=== PATIENT | male | born 1935 | race Caucasian/White ===

== ENCOUNTER → 2021-11-28 09:10 | Outpatient (BNVA) | payer MEDICARE, OTHER, SELFPAY | PROVIDERS: PCP Registered Nurse; Referring Provider Registered Nurse; Visit Provider Specialist | DX: G56.01 Carpal tunnel syndrome, right upper limb (principal) | CPT/HCPCS: 95908; 95909 ==

== ENCOUNTER → 2022-01-07 10:09 | Outpatient (BNVA) | payer MEDICARE, OTHER, SELFPAY | PROVIDERS: PCP Registered Nurse; Referring Provider Registered Nurse; Visit Provider Specialist | DX: G56.01 Carpal tunnel syndrome, right upper limb (principal) | CPT/HCPCS: 73110 ==

== ENCOUNTER 2022-01-07 13:53 | Outpatient (CLI) | payer MEDICARE, OTHER, SELFPAY | END 2022-01-07 13:54 | disposition home or self-care (01) | LOC: SPT 13:54 | PROVIDERS: PCP Registered Nurse; Visit Provider Specialist | DX: Z46.89 Encounter for fitting and adjustment of other specified devices (principal); G56.01 Carpal tunnel syndrome, right upper limb | CPT/HCPCS: 97760; 99204; L3908 ==

== ENCOUNTER 2022-03-16 13:55 | Emergency (ER) | payer MEDICARE, OTHER, SELFPAY ==
[2022-03-16 14:08] VITALS: BP 174/82; PULSE 72; RESP 18; TEMP 37.6; O2SAT 94; BMI 26.6
--- NOTE | 2022-03-16 14:24 | XRR_ITS ---
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 Views: 2 or 3 views. COMPARISON: No relevant prior studies available. FINDINGS: Bones/joints: Lumbar spine dextroscoliosis with a Rudd angle of 14 degrees as measured between the superior endplate of L1 and inferior endplate of L5. Multilevel severe disc space narrowing with productive degenerative endplate changes. Grade 1 anterolisthesis of L4 relative to L5 of 8 mm. Soft tissues: Unremarkable. Vasculature: Scattered vascular calcifications. XR/XR lumbar spine 2-3V* [id number] IMPRESSION: 1. Lumbar spine dextroscoliosis with a Rudd angle of 14 degrees as measured between the superior endplate of L1 and inferior endplate of L5. 2. Multilevel severe disc space narrowing with productive degenerative endplate changes. 3. Grade 1 anterolisthesis of L4 relative to L5 of 8 mm. 4. Scattered vascular calcifications.
[2022-03-16 14:27] VITALS: PULSE 74; RESP 20; O2SAT 98
--- NOTE | 2022-03-16 14:27 | ED_ITS ---
HPI - Back Pain/Injury General: Chief Complaint: Back Pain/Injury Stated Complaint: back pain Time Seen by Provider: 03/16/22 14:17 History of Present Illness: Patient is an 86-year-old male comes to the ED with lower back pain. Pain started approximately 3 days ago. 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 The next day he started having the back pain. He went and saw his chiropractor and they performed a manipulation on him and it did not help his symptoms. He also saw his PCP yesterday and they performed a injection of steroid that did not help either. He rates his pain currently a 10 out of 10 and its all located in his lower back. Pain worsens with some movements. Denies any pain radiating down his legs. Denies any bladder or bowel incontinence, pelvic anesthesia or weakness to lower extremities. Associated symptoms: Deny abdominal pain, chills, dysuria, fatigue, fever(s), hematuria, nausea or vomiting Review of Systems Const: Denies: fever(s), chills or fatigue Eyes: Denies: change in vision or eye discomfort ENMT: Denies: throat pain, odynophagia, nasal discharge or nasal congestion Card: Denies: chest pain, palpitations, edema, swelling of feet/ankles, dy spnea on exertion or orthopnea Resp: Denies: dyspnea, productive cough or non-productive cough GI: Denies: abdominal pain, nausea, vomiting, diarrhea, constipation or hematochezia : Denies: flank pain, difficulty urinating, dysuria or hematuria Musc: Reports: back pain; Denies: neck pain or extremity swelling Skin/Breast: Denies: rash or new lesions Neuro: Denies: headache(s), numbness in extremities or weakness in extremities PFS ED PFSH: Medical History No pertinent family history Surgical History No pertinent past surgical history Social History Smoking and tobacco status: never smoked Alcohol intake: never History of recent travel: No Physical Exam Const: COMMON NORMALS: patient oriented x3 and alert GENERAL APPEARANCE: cooperative and comfortable HENMT: COMMON NORMALS: normocephalic HEAD & SCALP: normocephalic MOUTH: Normal oral and palatal mucosa present THROAT: posterior oropharynx normal and uvula midline Neck/C-Spine: COMMON NORMALS: supple GENERAL: Yes normal visual inspection Resp: COMMON NORMALS: normal respiratory effort, No retractions, No use of accessory muscles and clear to auscultation bilaterally AUSCULTATION: clear t o auscultation bilaterally Cardio: COMMON NORMALS: regular rate, regular rhythm, S1 normal heart sound present, S2 normal heart sound present, No gallops present (Cardio), No clicks present (Cardio), No murmurs present (Cardio) and Peripheral pulses 2+ throughout RATE: regular rate RHYTHM: regular rhythm HEART SOUNDS: S1 normal heart sound present and S2 normal heart sound present PERIPHERAL PULSES: Peripheral pulses 2+ throughout GI: COMMON NORMALS: Normal to inspection, nondistended, normoactive bowel sounds present, Soft to palpation, non-tender and no masses PALPATION: Yes Soft to palpation : COMMON NORMALS: Yes no CVA tenderness BLADDER/KIDNEY EXAM: Yes no CVA tenderness Back/Pelvis: COMMON NORMALS: no CVA tenderness LUMBAR SPINE/LOWER BACK: Yes lumbar spinal tenderness Lumbar spinal tenderness location: L3, L4 and L5 and Yes paraspinal muscle tenderness Lumbar paraspinal muscle tenderness: bilateral Extremity: COMMON NORMALS: normal to inspection Neuro: COMMON NORMALS: patient oriented x3 SENSORIUM/ORIENTATION: Yes alert GAIT: Yes Normal gait present Skin: GENERAL SKIN EXAM: dry skin Course Vital Signs: Vital signs: Vital Signs Temperature 99.7 F H 03/16/22 14:08 Pulse Rate 83 03/16/22 15:44 Respiratory Rate 18 03/16/22 15:44 Blood Pressure 174/82 03/16/22 14:08 Pulse Oximetry 97 03/16/22 15:44 Oxygen Delivery Me thod 03/16/22 14:27 MDM - Back Pain/Injury Medical Decision Making Patient is an 86-year-old male comes to the ED with lower back pain. Pain started approximately 3 days ago. 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 The next day he started having the back pain. He went and saw his chiropractor and they performed a manipulation on him and it did not help his symptoms. He also saw his PCP yesterday and they performed a injection of steroid that did not help either. He rates his pain currently a 10 out of 10 and its all located in his lower back. Pain worsens with some movements. Denies any pain radiating down his legs. Denies any bladder or bowel i ncontinence, pelvic anesthesia or weakness to lower extremities. Vitals are stable. Exam of patient shows some L3-L5 lumbar spinal tenderness and lumbar paraspinal muscle tenderness bilaterally. Rest of exam is benign. Lumbar spine x-ray shows no acute fractures but shows some multilevel disc degenerative disc disease. Given patient's history and exam I have diagnosed him with a strain of lumbar region. He was given a dose of morphine and Norflex here in the ED and it did improve his symptoms. He was stable for discharge home and sent with a prescription for muscle relaxer and an NSAID. Told to follow-up with PCP in the next week for reevaluation. Return to ED precautions given. Patient understood and agreed with plan. Labs Radiology Impressions Lumbar Spine X-Ray 03/16/22 14:24 IMPRESSION: 1. Lumbar spine dextroscoliosis with a Rudd angle of 14 degrees as measured between the superior endplate of L1 and inferior endplate of L5. 2. Multilevel severe disc space narrowing with productive degenerative endplate changes. 3. Grade 1 anterolisthesis of L4 relative to L5 of 8 mm. 4. Scattered vascular calcifications. Discharge Plan Discharge Patient Disposition: Home Clinical Impression: Strain of lumbar region Condition: Stable Prescriptions: New methocarbamol 750 mg tablet 750 mg PO Q8H PRN (Reason: Back muscle spasms and pain) Qty: 20 0RF No Action celecoxib [Celebrex] 50 mg capsule 50 mg PO BID (DME) COCK UP SPLINT See Rx Instructions .Route .MEDSUPPLY Qty: 1 0RF Rx Instructions: As directed Discharge Orders: Discharge ED (Routine); Ordered 03/16/22 Ordered By: Jesse Edmond Referrals: Deirdre Hilliard [Primary Care Provider] - Discharge Diet: Regular Discharge Activity: Increase activity as tolerated Patient Instructions: Low Back Strain (ED) Activity Restrictions/Additional Instructions: Follow-up with medical provider as directed in the next 5 to 7 days for reevaluation. Take medications as prescribed. Return to the ER or your medical provider if condition worsens. Please read and understand discharge instructions. Thank you for choosing [facility] for your healthcare needs today. Please realize this is an emergency room and that we are providing you with a m edical screening exam and this may not be complete and all inclusive of all the testing and or work up that you may need to determine your ailment or severity of your illness. It is very important that you follow up as instructed or that you return to the Emergency Department should you have concerns or if your condition changes or worsens in any way. Coding Level of Care Code ED Supervisor Microwave for Kiera Fwd Exam Comprehensive
[2022-03-16] MEDS: morphine 4 mg/mL SDV 1 mL IVP (14:45)
[2022-03-16] MEDS: orphenadrine 30 mg/mL Inj 2 mL 60 MG IM (14:45)
[2022-03-16 15:44] VITALS: PULSE 83; RESP 18; O2SAT 97
== END 2022-03-16 15:30 | disposition home or self-care (01) ==
PROVIDERS: Emergency Provider Physician Assistant; PCP Registered Nurse
DX: S39.012A Strain of muscle, fascia and tendon of lower back, initial encounter (principal); X50.9XXA Other and unspecified overexertion or strenuous movements or postures, initial encounter
CPT/HCPCS: 72100; 96372; 96374; 99284; J2270; J2360

== ENCOUNTER → 2022-03-26 13:00 | Outpatient (BNVA) | payer MEDICARE, OTHER, SELFPAY | PROVIDERS: PCP Registered Nurse; Referring Provider Nurse Practitioner Family; Visit Provider Physician Assistant | DX: M51.36 Other intervertebral disc degeneration, lumbar region (principal); M47.816 Spondylosis without myelopathy or radiculopathy, lumbar region; M47.896 Other spondylosis, lumbar region | CPT/HCPCS: 72110; 99203 ==

== ENCOUNTER → 2022-04-04 10:01 | Outpatient (BNVA) | payer MEDICARE, OTHER, SELFPAY | PROVIDERS: PCP Registered Nurse; Visit Provider Physician Assistant | DX: M47.816 Spondylosis without myelopathy or radiculopathy, lumbar region (principal); M51.36 Other intervertebral disc degeneration, lumbar region | CPT/HCPCS: 99213 ==

== ENCOUNTER 2022-04-30 14:00 | Outpatient (CLI) | payer MEDICARE, OTHER, SELFPAY ==
--- NOTE | 2022-04-30 14:30 | MR_ITS ---
WS: [id number] MRI LUMBAR SPINE NONCONTRAST TECHNIQUE: Sagittal T1, T2 and STIR imaging. Axial T1 and T2 imaging. CLINICAL INFORMATION: pain COMPARISON: None. FINDINGS: Counting performed from the craniocervical junction. Grade 1 anterolisthesis L5 on S1. S1 i s partially lumbarized with residual disc space. Lumbar curve. No acute compression. Moderate spondylitic changes lumbar spine. Degenerative narrowing at the L1-L2 interspace with endplate edema likely degenerative. Discitis is n ot entirely excluded. However, no evidence of paravertebral abscess or significant soft tissue edema. L1-L2: Disc osteophyte complex endplate ridging. Moderate central canal stenosis. Impingement on the traversing L2 nerve roots bilaterally subarticular recess. Moderate RIGHT and mild LEFT foraminal rena rowing. Mild facet arthropathy. Impingement worse in the LEFT subarticular recess. L2-L3: Disc osteophytic complex with endplate ridging. Moderate central canal stenosis. Impingement o n the LEFT greater than RIGHT subarticular recess. Moderate facet arthropathy. Moderate LEFT and mild RIGHT foraminal narrowing. Moderate facet arthropathy. L3-L4: Mild disc bulging with impingement on traversing LEFT L4 nerve root in the subarticular recess . Mild LEFT greater than RIGHT foraminal narrowing. Moderate facet arthropathy. Mild central canal st enosis. L4-L5: Mild disc osteophyte complex endplate ridging. Moderate central canal stenosis. Impingement tr aversing L5 nerve roots bilaterally. Moderate to advanced facet arthropathy. Moderate LEFT and mild R IGHT foraminal narrowing. L5-S1: Disc bulging with grade 1 anterolisthesis. Severe central canal stenosis. Impingement traversi ng S1 nerve roots bilaterally. Advanced facet arthropathy with small facet effusions. Moderate RIGHT and mild LEFT foraminal narrowing. S1-S2: Minimal disc bulging. Moderate facet arthropathy. Spinal canal and foramen are patent. Slight impingement on the traversing S2 nerve roots. Grade 1 anterolisthesis in the cervical spine at C6-C7 and C7-T1 seen on the social science analyst imaging. 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 MR/MR lumbar spine wo con* [id number] IMPRESSION: 1. Counting performed from the craniocervical junction. Grade 1 anterolisthesi s L5 on S1. S1 is partially lumbarized with residual disc space. 2. Advanced degenerative narrowing at the L1-L2 disc space with endplate edema . Discitis is not entirely excluded. No evidence of paravertebral abscess. Anthony mmend correlation for infection. 3. Moderate central canal stenosis L1-L2, L2-L3, and L4-L5 with impingement on the subarticular recess at these levels. 4. Severe central canal stenosis L5-S1. 5. Mild central canal stenosis L3-L4 with impingement on the LEFT subarticular recess and traversing LEFT L4 nerve root. 6. Advanced facet arthropathy L5-S1 with small facet effusions compatible with synovitis likely degenerative in a patient this age. 7. Foraminal narrowing worse at RIGHT L1-L2, LEFT L2-L3, LEFT L3-L4, LEFT L4-L 5 and bilateral L5-S1.
== END 2022-04-30 14:01 | disposition home or self-care (01) ==
LOC: RAD 14:00
PROVIDERS: PCP Registered Nurse; Visit Provider Physician Assistant
DX: M47.816 Spondylosis without myelopathy or radiculopathy, lumbar region (principal); M51.36 Other intervertebral disc degeneration, lumbar region; M48.061 Spinal stenosis, lumbar region without neurogenic claudication
CPT/HCPCS: 72148

== ENCOUNTER → 2022-05-02 09:21 | Outpatient (BNVA) | payer MEDICARE, OTHER, SELFPAY | PROVIDERS: PCP Registered Nurse; Visit Provider Physician Assistant | DX: M47.816 Spondylosis without myelopathy or radiculopathy, lumbar region (principal); M51.36 Other intervertebral disc degeneration, lumbar region; M48.061 Spinal stenosis, lumbar region without neurogenic claudication | CPT/HCPCS: 99213 ==

== ENCOUNTER 2022-06-13 07:25 | Outpatient (CLI) | payer OTHER, SELFPAY ==
--- NOTE | 2022-06-13 07:33 | USCV_ITS ---
Rose Faustin Age: 86 Gender: M : 1935 Exam Date: 06/13/2022 08:02 Ordering Phys: Fabiana Benedict MD Technologist: Tawanda Torres Exam Location: [facility] [place] Indication: murmur BP: 174 / 82 HR: 52 Rhythm: Sinus Technical Quality: Adequate MEASUREMENTS (Male / Female) Normal Values 2D ECHO LVOT Diameter 2.0 cm LV Ejection Fraction MOD 2C 67.6 % LV Ejection Fraction 2C AL 67.8 % LA Diameter 3.3 cm LA Width 2.9 cm LA Height 3.6 cm RA Width 3.4 cm RA Height 4.3 cm Aorta at Sinotubular Diameter 2.3 cm M-MODE Aortic Annulus Diameter 3.1 cm LA Ao Ratio MM 1.0 MV E Point Septal Separation 0.4 cm DOPPLER AV Peak Velocity 301.7 cm/s LVOT Peak Velocity 126.0 cm/s AV Area Cont Eq vti 1.3 cm squared AV Area Cont Eq pk 1.3 cm squared MV Peak Velocity 135.0 cm/s MV Area PHT 4.4 cm squared Mitral E to A Ratio 0.8 MV E' Velocity 55.0 cm/s Mitral E to MV E' Ratio 13.8 Mitral E to LV E' Lateral Ratio 13.4 Mitral E to LV E' Septal Ratio 14.2 TR Peak Velocity 339.6 cm/s TR Peak Gradient 46.1 mmHg TR Mean Velocity 263.8 cm/s TR Mean Gradient 30.0 mmHg TR Velocity Time Integral 97.7 cm Right Atrial Pressure 8.0 mmHg Pulmonary Artery Systolic Pressu 54.1 mmHg PV Peak Velocity 106.7 cm/s RV Acceleration Time 0.1 s RV Ejection Time 0.3 s RV AcT/ET 0.5 FINDINGS Left Ventricle Left ventricle is normal in size. LV systolic function is normal with EF 55 to 60%. No regional wall motion normalities are seen. Grade 1 diastolic dysfunction Right Ventricle Normal in size and function Right Atrium Normal in size Left Atrium Normal in size Mitral Valve Moderate mitral annular calcification. Mild mitral regurgitation. Aortic Valve Aortic valve is thickened. Moderate aortic stenosis with aortic valve area of 1.26 cm squared and mean gradient across aortic valve of 22.4 mmHg. Mild to moderate aortic regurgitation. Tricuspid Valve Mild tricuspid regurgitation. RVSP is 50 to 55 mmHg. Moderate pulmonary hypertension. Pulmonic Valve Not well-visualized. Mild pulmonic regurgitation. Pericardium Normal Aorta Normal size. IVC Normal in size CONCLUSIONS LV systolic function is normal with EF of 55 to 60% Grade 1 diastolic dysfunction Mild mitral regurgitation Moderate aortic stenosis. Mild to moderate aortic regurgitation Mild tricuspid regurgitation Moderate pulmonary hypertension Mild pulmonic regurgitation No comparison studies are available Chilango Armstrong MD (Electronically Signed) Final Date: 27 Jun 2022 13:45 S
== END 2022-06-13 07:26 | disposition home or self-care (01) ==
LOC: RAD 07:29
PROVIDERS: PCP Family Medicine; Visit Provider Family Medicine
DX: R01.1 Cardiac murmur, unspecified (principal); I50.30 Unspecified diastolic (congestive) heart failure; I34.0 Nonrheumatic mitral (valve) insufficiency; I35.0 Nonrheumatic aortic (valve) stenosis; I35.1 Nonrheumatic aortic (valve) insufficiency; I07.1 Rheumatic tricuspid insufficiency; I27.20 Pulmonary hypertension, unspecified; I37.1 Nonrheumatic pulmonary valve insufficiency
CPT/HCPCS: 93306

== ENCOUNTER → 2022-09-16 08:31 | Outpatient (BNVA) | payer MEDICARE, OTHER, SELFPAY | PROVIDERS: PCP Family Medicine; Visit Provider Specialist | DX: G56.01 Carpal tunnel syndrome, right upper limb (principal) | CPT/HCPCS: 99204 ==

== ENCOUNTER → 2022-10-02 11:06 | Outpatient (BNVA) | payer MEDICARE, OTHER, SELFPAY | PROVIDERS: PCP Family Medicine; Visit Provider Family Medicine | DX: Z01.818 Encounter for other preprocedural examination (principal) | CPT/HCPCS: 17000; 69100; 80048; 85025; 99204 ==

== ENCOUNTER 2022-10-11 06:15 | Day surgery (SDC) | payer MEDICARE, OTHER, SELFPAY ==
[2022-10-10 13:17] VITALS: BMI 23.5
[2022-10-11] VITALS (11 sets, daily range): BP systolic 134–154; BP diastolic 76–90; PULSE 55–87; RESP 11–25; TEMP 36.1–36.4; O2SAT 95–100
[2022-10-11] MEDS: sodium chloride 0.9% 1,000 ML 30 ML IV (06:47)
--- NOTE | 2022-10-11 06:49 | W.PM.OPSUD ---
Surgery/Procedure H&P Update DATE OF PROCEDURE: October 11, 2022 DATE H&P PERFORMED: 10/02/22 H&P UPDATE INFORMATION: I have reviewed H&P completed within last 30 days, I have examined patient prior to procedure, No changes to prior documentation and H&P is in [facility] [place] on date indicated PLANNED PROCEDURE: Operation Date: 10/11/22 08:10 Proposed Procedures p RIGHT CARPAL TUNNEL RELEASE [id number],G56.00(Right) - Carla Riggs MD Related Problem List Diagnoses (1) Right carpal tunnel syndrome:
[2022-10-11] MEDS: gabapentin 300 mg Capsule PO (06:50)
[2022-10-11] MEDS: CELEcoxib 200 mg Capsule 400 MG PO (06:50)
[2022-10-11] MEDS: acetaminophen 1,000 MG/100 ML PIGGYBACK 400 MG IV (06:52)
--- NOTE | 2022-10-11 07:39 | ANES.PREANE2 ---
Pre-Anesthetic Assessment Height/Weight: Height 1.7 m Weight 68.039 kg Temp Pulse Resp BP Pulse Ox O2 Del Method 97.3 F L 55 L 16 144/80 97 Room Air 10/11/22 06:35 10/11/22 06:35 10/11/22 06:35 10/11/22 06:35 10/11/22 06:35 10/11/22 06:44 Operation Date: 10/11/22 08:10 Proposed Procedures p RIGHT CARPAL TUNNEL RELEASE [id number],G56.00(Right) - Carla Riggs MD Familial anesthetic complications: None Was Beta Nicolasa taken within 24 hours: N/A Was Clonidine taken within 24 hours: N/A Last intake: Intake Last Liquid Date 10/10/22 Last Liquid Time 22:00 Last Solid Date 10/10/22 Last Solid Time 20:00 Social No alcohol and No tobacco Exam alert, oriented x 3, clear to auscultation bilaterally and regular rate & rhythm Airway Mallampati: Class II Dentition: false Pulmonary Sleep Apnea CV/HEM Hypertension GI Gastroesophageal Reflux Disease Anesthetic Plan ASA status: 3 Anesthesia: General Risk of > 500 ml blood loss (7ml/kg in children): No Medications/Allergies Home Medications Medication Instructions Recorded Confirmed Last Taken Type acetaminophen 500 mg capsule 500 mg PO Q6H PRN Mild Pain (Scale 10/02/22 10/10/22 10/10/22 History Score 1-4) lisinopril 20 mg tablet 20 mg PO DAILY 10/02/22 10/10/22 10/10/22 History omeprazole 20 mg capsule,delayed 20 mg PO DAILY 10/02/22 10/10/22 10/10/22 History release Allergies Allergy/AdvReac Type Severity Reaction Status Date / Time No Known Allergies Allergy Verified 10/10/22 13:14 Current Medications Generic Name Dose Route Start Last Admin Trade Name Freq PRN Reason Stop Dose Admin Sodium Chloride 1,000 mls @ 30 mls/hr 10/11/22 06:30 10/11/22 06:47 Sodium Chloride 0.9% IV 10/12/22 06:29 30 mls/hr .Q24H JAZMINE Administration PFSH Anesthesia Medical History No pertinent family history Surgical History No pertinent past surgical history Social History Smoking and tobacco status: never smoked Alcohol intake: never Substance/Drug Use: never Data Anesthesia Cardiac Studies: Echocardiogram 06/13/22
[2022-10-11] MEDS: ceFAZolin 2,000 MG in sodium chloride 0.9% (plus) 50 ML 100 MG IV (08:54)
[2022-10-11] MEDS: BUPivacaine 0.5% INJ 30 mL XX (09:46)
--- NOTE | 2022-10-11 10:20 | P.OP_ITS ---
Operative Report Date of procedure: October 11, 2022 Pre-op diagnosis: Right carpal tunnel syndrome Post-op diagnosis: Right carpal tunnel syndrome Post-op findings: Significant hardening of the transverse carpal ligament with calcification. Compression across the median nerve. Procedure done: Right carpal tunnel release Specimens removed/disposition: None Surgeon: Carla Riggs MD Bottle Blower: None Anesthesia: General (Per LMA, ASA 3) Estimated blood loss (mL): 2 Tourniquet time (min): 32 (At 250 mmHg) IV fluids (mL): 600 Urine output (mL): 0 (No Mares) Complications: None Findings: Calcification and thickening of the transverse carpal ligament. Condition: stable Disposition: PACU (Then return to same-day surgery for discharge to home) Brief History: This 86-year-old gentleman presented to the office with complaints of right carpal tunnel syndrome. He complained of pain at a 5 of 10 and had difficulties with activities of daily living. 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 He reports numbness and tingling sensations in all 5 digits. He states he wears a splint at night with some relief. When he was seen in the office, risks and complications were discussed. Consents were signed. Questions were answered. Procedure: The patient was brought to the operating theater. General anesthesia was administered per LMA, ASA 2. The arm was then prepped and draped with DuraPrep in usual fashion with the arm draped free. Tourniquet was elevated after exsanguination to 250 mmHg. Total tourniquet time was 32 minutes. A surgical pause was performed. At the time, the surgical pause, we confirmed the site and side of surgery. We also confirmed the patient's identity, appropriate and timely administration of preoperative antibiotics, Ancef 2 g, and preoperative surgical markings. An incision was then made along the thenar crease. The incision crossed the wrist joint in a curvilinear fashion. Dissection continued through skin and soft tissues using a scalpel. The palmaris longus was identified along with the transverse carpal ligament. Each of these was released carefully to avoid injury to the median nerve. The transverse carpal ligament was noted to be somewhat calcified and very hard and dense. We were able to dissect gently into the carpal canal which was noted to be quite tight with significant compression across the median nerve. The nerve was visualized and was an hourglass shape. The canal was subsequently palpated to assure there was no bony encroachment upon the canal. There was a quite thickened fibrous tissue within the canal, and this was opened longitudinally as well. The canal was then palpated distally and proximally to assure that my small finger was passed easily without impingement. Finding this to be so, attention was directed to closure. The wound was irrigated with ropivacaine plain. It was then closed with 3-0 nylon in an interrupted mattress fashion. Sterile dressing was then placed consisting of Dermabond, OpSite, fluffed fluffs, sterile soft roll, and an Mayur wrap. The tourniquet was released after 32 minutes. There were no complications. There were no specimens. The procedure was well tolerated. Plan is the patient will be discharged home. Related Problem List Diagnoses (1) Right carpal tunnel syndrome:
--- NOTE | 2022-10-11 11:20 | ANE.PACU2 ---
Inpatient post-anesthesia follow up: Airway intact: Yes Vital signs: Temperature 97.6 F Pulse Rate 76 Respiratory Rate 17 Blood Pressure 150/86 Pulse Oximetry 95 Oxygen Delivery Me thod Room Air Oxygen Flow Rate 5 Fraction of Inspir ed Oxygen Hydration adequate: Yes Nausea and vomiting: No Pain level: 1 Mental status: Baseline
== END 2022-10-11 11:20 | disposition home or self-care (01) ==
PROVIDERS: PCP Family Medicine; Visit Provider Specialist
PROC: (CPT 64721; principal; 2022-10-11 08:00)
DX: G56.01 Carpal tunnel syndrome, right upper limb (principal); G47.30 Sleep apnea, unspecified; K21.9 Gastro-esophageal reflux disease without esophagitis
CPT/HCPCS: 64721; J0131; J0690; J1100; J2405; J2704; J3010; J3490; J7030

== ENCOUNTER → 2022-10-22 08:43 | Outpatient (BNVA) | payer OTHER, MEDICARE, SELFPAY | PROVIDERS: PCP Family Medicine; Visit Provider Dermatology | DX: C44.229 Squamous cell carcinoma of skin of left ear and external auricular canal (principal); C44.92 Squamous cell carcinoma of skin, unspecified | CPT/HCPCS: 14061; 17311; 17312 ==

== ENCOUNTER → 2022-10-23 13:57 | Outpatient (BNVA) | payer MEDICARE, OTHER, SELFPAY | PROVIDERS: PCP Family Medicine; Visit Provider Nurse Practitioner Family | DX: M17.0 Bilateral primary osteoarthritis of knee; Z98.890 Other specified postprocedural states | CPT/HCPCS: 20610; 73560; 73565; 99214; J1100; J2795; J3301 ==

== ENCOUNTER → 2022-11-01 09:37 | Outpatient (BNVA) | payer MEDICARE, OTHER, SELFPAY | PROVIDERS: PCP Family Medicine; Visit Provider Dermatology | DX: Z48.02 Encounter for removal of sutures (principal) | CPT/HCPCS: 99024; 99212 ==

== ENCOUNTER → 2022-11-27 12:14 | Outpatient (BNVA) | payer OTHER, SELFPAY | PROVIDERS: PCP Family Medicine; Referring Provider Family Medicine; Visit Provider Internal Medicine Cardiovascular Disease | DX: R07.9 Chest pain, unspecified (principal); I71.40 Abdominal aortic aneurysm, without rupture, unspecified; R00.1 Bradycardia, unspecified | CPT/HCPCS: 93005; 99204 ==

== ENCOUNTER 2022-12-10 09:21 | Outpatient (CLI) | payer OTHER, SELFPAY ==
--- NOTE | 2022-12-10 | ECG_ITS ---
[facility] Test Date: 2022-12-10 Pat Name: Rose Faustin Department: Room: Gender: Male Tour Conductor: : 1935 Requested By: Bar Greco Order Number: [id number] Abhishek MD: Chilango Armstrong M.D. Interpretive Statements NAME OF STUDY: LEXISCAN SESTAMIBI STRESS TEST INDICATION: [AORTIC VALVE STENOSIS, ] Procedure: At the baseline, the blood pressure was 144/72 mmHg with a heart rate of 50 bpm. The electrocardiogram showed sinus bradycardia, normal axis with normal ST and T's. The Lexiscan was infused over a period of 20 seconds. A total of 0.4 mg of Lexiscan was infused. The stress phase was continued for a total of 5 minutes. Heart rate was at the end of stress phase was 79 bpm and a blood pressure of 128/71 mmHg. The EKG at the peak infusion revealed normal sinus rhythm with no significant ST-T wave changes. Sestamibi was injected 20 seconds after the Lexiscan infusion. Blood pressure at the end of recovery phase was 123/71 mmHg with a heart rate of 84 bpm. Conclusion: 1. Normal EKG response to Lexiscan infusion 2. No Lexiscan induced chest pain or cardiac arrhythmia. 3. Normal blood pressure and heart rate response. 4. Sestamibi/sestamibi perfusion scan pending; see separate report. Electronically Signed On 12-14-2022 20:41:55 CDT by Chilango Armstrong M.D. [email or web address]
--- NOTE | 2022-12-10 09:40 | NMCV_ITS ---
NM florina perf SPECT r/s* [id number] Rose Faustin Age: 87 Gender: M : 1935 Exam Date: 12/10/2022 09:40 Ordering Phys: Bar Greco MD ([email or web address]) Technologist: ELEAZAR Santos Exam Location: [facility] Indications: ABDOMINAL AORTIC ANEURYSM STRESS TEST Please see separate stress test report in [facility] for full findings IMAGE PROTOCOL Rest/Stress 1 Lexiscan Day Radiopharmaceutical Dose (mCi) Administration Site Administered by Rest: Tc-99m 10.7 IV ELEAZAR Carlton Sestamibi Stress:Tc-99m 32.9 IV ELEAZAR Santos Sestamimiguel Rest: 10-Dec-2022 60 Discovery 630 Stress: 10-Dec-2022 30 Discovery 630 0.4mg Lexiscan. Images obtained in supine and prone position. SPECT RESULTS Technical Quality: Excellent Raw Data Analysis: Normal Image Corrections: No attenuation or motion correction applied Summed Stress Score: 2 Summed Rest Score: 5 Summed Difference Score: 1 PERFUSION FINDINGS There is a small area for mostly fixed perfusion defect noted in apical lateral wall. This is consistent with small area of prior infarct with minimal thong- infarct ischemia in left circumflex artery territory. FUNCTIONAL RESULTS (calculated via Gated SPECT) Stress Image LV EF (%): 82 Stress EDV (mL):65 TID: 0.77 Stress ESV (mL):12 FUNCTIONAL FINDINGS: There is normal left ventricular systolic function. IMPRESSIONS 1. Small sized area of prior infarct with very minimal thong-infarct ischemia is noted in the left circumflex artery territory. 2. LV systolic function is normal Chilango Armstrong MD (Electronically Signed) Final Date: 10 December 2022 13:50 S
[2022-12-10 09:41] VITALS: BMI 23.8
[2022-12-10] MEDS: regadenoson 0.4 Mg/5 ml Syringe IVP (11:28)
[2022-12-10 11:42] VITALS: BP 123/76; PULSE 85
--- NOTE | 2022-12-10 12:00 | USCV_ITS ---
Rose Faustin Age: 87 Gender: M : 1935 Exam Date: 12/10/2022 12:27 Ordering Phys: Bar Greco MD ([email or web address]) Technologist: Alf Sloan Exam Location: [facility] – [place] Indication: aaa HISTORY: Diameter (cm) AP x Transverse x Length Velocity (cm/s) Waveform Prox Aorta: 1.73 x 1.99 x 98.40 Biphasic Mid Aorta: 2.09 x 1.94 x 108.10 Biphasic Distal Aorta: 2.02 x 2.00 x 108.10 Biphasic Right Iliac Prox: 0.92 x 0.92 x 123.40 Biphasic Left Iliac Prox: 0.78 x 0.97 x 146.90 Biphasic Stent Prox Landing x x Aneurysmal Sac Max x x Lt Lat Sac Dim Rt Lat Sac Dim Stent Dist Landing x x Right Iliac Stent x x Left Iliac Stent x x Right Renal Art Left Renal Art FINDINGS: small saccular bulge in the mid to distal abdominal aorta Normal aortic dimensions Normal iliac artery dimensions Normal Doppler flow velocity CONCLUSIONS 1. 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 Normal aortic dimensions 3. Normal proximal, iliac artery dimensions with no evidence of stenosis or aneurysm Dr Bar Greco MD [facility] (Electronically Signed) Final Date: 13 December 2022 10:10 S
== END 2022-12-10 09:22 | disposition home or self-care (01) ==
LOC: CDL 09:22
PROVIDERS: PCP Family Medicine; Visit Provider Internal Medicine Cardiovascular Disease
DX: I35.0 Nonrheumatic aortic (valve) stenosis (principal); I71.40 Abdominal aortic aneurysm, without rupture, unspecified; I25.2 Old myocardial infarction
CPT/HCPCS: 36415; 78452; 93017; 93978; 96374; A9500; J2785

== ENCOUNTER 2023-06-05 08:26 | Outpatient (CLI) | payer OTHER, SELFPAY ==
--- NOTE | 2023-06-05 08:32 | CT_ITS ---
WS: [id number] CT ABDOMEN AND PELVIS WITH CONTRAST HISTORY: UPPER ABDOMINAL PAIN TECHNIQUE: Imaging performed of the abdomen and pelvis with IV contrast. Single phase imaging of the abdomen. Coronal and sagittal reformats are submitted. All CT scans at [facility] use at [address] one of these dose optimization techniques: automated exposure control; mA and/or kV adjustment per patient size (includes targeted exams where dose is matched to clinical indication); or iterative re construction. IV CONTRAST: Omnipaque 350; 100 mL IV. Oral contrast: Yes. DLP: 350.51 mGy.cm COMPARISON: None available. Lower thorax: Lung bases are clear. Heart is normal size. Very small hiatal hernia. Liver/biliary system: Tiny low-attenuation nodule LEFT lobe of the liver. No larger masses. Gallbladder: Normal. No gallstones or wall thickening. No pericholecystic fluid. Pancreas: Normal size pancreas and pancreatic duct. No adjacent inflammation. Spleen: Normal size spleen. No mass or infarct. Adrenal glands: Normal. Right kidney: Normal. Left kidney: Normal. Aorta: Mild atherosclerosis with no aneurysm. Lymphadenopathy: Abnormal lymph nodes in the RIGHT lower quadrant. The largest lymph node is 1.5 cm i n diameter. There are several lymph nodes RIGHT lower quadrant associated with the cecum. No retroper itoneal adenopathy. Free fluid: None. GI tract: Soft tissue mass centered at the cecum. There is circumferential thickening of the cecum. M ass extends over a length of approximately 5 cm. There are adjacent lymph nodes. Highly concerning fo r neoplasm. There is diffuse marked wall thickening of the stomach. Which may be due to gastritis. There is no ar eas of abnormal enhancement. No adjacent stranding. No small bowel obstruction. Diffuse constipation. Numerous diverticula in the sigmoid colon with tortuosity. Abdominal wall: Unremarkable abdominal wall. No hernia. Pelvis: No adenopathy or free fluid. Normal urinary bladder. Bones: Mild osteopenia. L4 anterolisthesis by 5 mm. Severe disc space narrowing at T12-L1: No osteobl astic or osteolytic bone disease. IMPRESSION: 1. 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 Recomm end evaluation by colonoscopy. 2. No metastatic disease within the liver or adrenal glands. There is a tiny low-attenuation focus i n the LEFT lobe of the liver which cannot be characterized further. 3. No ascites. 4. There is mild diffuse thickening of the stomach wall. Gastritis, less likely infiltrating neoplas m. 5. Sigmoid diverticulosis without acute diverticulitis.
[2023-06-05] MEDS: iohexol 350 mg/mL 500 mL Btl (per mL) PO (09:52)
[2023-06-05] MEDS: iohexol 350 mg/mL 500 mL Btl (per mL) IV (10:08)
== END 2023-06-05 08:27 | disposition home or self-care (01) ==
LOC: RAD 08:27
PROVIDERS: PCP Family Medicine; Visit Provider Family Medicine
DX: Z01.89 Encounter for other specified special examinations (principal); K57.30 Diverticulosis of large intestine without perforation or abscess without bleeding; R19.03 Right lower quadrant abdominal swelling, mass and lump; R59.0 Localized enlarged lymph nodes; K29.70 Gastritis, unspecified, without bleeding
CPT/HCPCS: 74177; Q9967

== ENCOUNTER → 2023-06-25 08:53 | Outpatient (BNVA) | payer OTHER, SELFPAY | PROVIDERS: PCP Family Medicine; Referring Provider Family Medicine; Visit Provider Surgery | DX: C18.9 Malignant neoplasm of colon, unspecified (principal) | CPT/HCPCS: 99204 ==

== ENCOUNTER 2024-06-17 09:02 | Outpatient (CLI) | payer OTHER, SELFPAY ==
--- NOTE | 2024-06-17 09:09 | USCV_ITS ---
Rose Faustin Age: 88 Gender: M : 1935 Exam Date: 06/17/2024 09:33 Ordering Phys: Fabiana Benedict MD Technologist: Exam Location: [facility] [place] Indication: as BP: 130 / 80 HR: 86 Rhythm: Sinus Technical Quality: Adequate MEASUREMENTS (Male / Female) Normal Values 2D ECHO LV Diastolic Diameter PLAX 3.7 cm 4.2 - 5.9 / 3.9 - 5.3 cm IVS Diastolic Thickness 1.4 cm 0.6 - 1.0 / 0.6 - 0.9 cm IVS Systolic Thickness 2.1 cm LVPW Diastolic Thickness 1.3 cm 0.6 - 1.0 / 0.6 - 0.9 cm LVPW Systolic Thickness 2.1 cm LVOT Diameter 2.0 cm LV Ejection Fraction 2D Teich 63.3 % LV Ejection Fraction MOD 4C 64.4 % LV Ejection Fraction MOD 2C 72.7 % LV Ejection Fraction 2C AL 73.9 % LA Diameter 3.9 cm Aorta at Sinotubular Diameter 3.3 cm IVC Diameter 1.6 cm M-MODE LV Ejection Fraction MM Teich 59.6 % IVS Diastolic Thickness MM 1.5 cm 0.6 - 1.0 / 0.6 - 0.9 cm IVS Systolic Thickness MM 2.2 cm LVPW Diastolic Thickness MM 1.3 cm 0.6 - 1.0 / 0.6 - 0.9 cm LVPW Systolic Thickness MM 2.6 cm LA Ao Ratio MM 1.3 MV E Point Septal Separation 0.9 cm AV Cusp Separation MM 1.7 cm DOPPLER AV Peak Velocity 384.2 cm/s LVOT Peak Velocity 172.0 cm/s AV Area Cont Eq vti 1.4 cm squared AV Area Cont Eq pk 1.4 cm squared MV Area PHT 4.9 cm squared Mitral E to A Ratio 0.9 TR Peak Velocity 385.0 cm/s TR Peak Gradient 59.3 mmHg TV Peak E Velocity 117.0 cm/s PV Peak Velocity 153.3 cm/s FINDINGS Left Ventricle Normal left ventricular size, systolic function and wall thickness, with no regional wall motion abnormalities. Left ventricular ejection fraction is estimated at 60 %. Grade I/IV diastolic dysfunction (abnormal relaxation filling pattern), normal to mildly elevated filling pressures. Right Ventricle The right ventricle is normal in size and function. Right Atrium The right atrium is normal in size. Left Atrium The left atrium is normal in size. Mitral Valve Structurally normal mitral valve without significant stenosis or prolapse. There is trace mitral regurgitation. Aortic Valve Moderate aortic valve calcification. Moderate aortic valve stenosis, mean gradient 27.3 mmHg, MICHELL 1.4 cm squared. Trace aortic valve regurgitation. Tricuspid Valve Mild tricuspid valve regurgitation. Pulmonic Valve Mild pulmonary valve regurgitation. Pericardium Normal pericardium without effusion. Aorta Normal ascending aorta dimension. IVC The inferior vena cava appears normal. CONCLUSIONS Normal left ventricular size, systolic function and wall thickness, with no regional wall motion abnormalities. Left ventricular ejection fraction is estimated at 60 %. Grade I/IV diastolic dysfunction (abnormal relaxation filling pattern), normal to mildly elevated filling pressures. Moderate aortic valve calcification. Moderate aortic valve stenosis, mean gradient 27.3 mmHg, MICHELL 1.4 cm squared. Trace aortic valve regurgitation. Structurally normal mitral valve without significant stenosis or prolapse. There is trace mitral regurgitation. Mild tricuspid valve regurgitation. Mild pulmonary valve regurgitation. There is no pericardial effusion. Right atrial pressure is around 5 mm of mercury. Alex Gonzalez MD (Electronically Signed) Final Date: 01 Jul 2024 20:43 S
== END 2024-06-17 09:03 | disposition home or self-care (01) ==
LOC: RAD 09:03
PROVIDERS: PCP Family Medicine; Visit Provider Family Medicine
DX: I35.0 Nonrheumatic aortic (valve) stenosis (principal); R93.1 Abnormal findings on diagnostic imaging of heart and coronary circulation; I35.8 Other nonrheumatic aortic valve disorders; I07.1 Rheumatic tricuspid insufficiency; I37.1 Nonrheumatic pulmonary valve insufficiency
CPT/HCPCS: 93306

== ENCOUNTER → 2024-12-01 13:46 | Outpatient (BNVA) | payer OTHER, SELFPAY | PROVIDERS: PCP Family Medicine; Visit Provider Specialist | DX: M17.0 Bilateral primary osteoarthritis of knee (principal) | CPT/HCPCS: 20610; 73560; 73565; 99214; J1100; J2795; J3301; J9999 ==